=== PATIENT | female | born 1970 | race Caucasian/White ===

== ENCOUNTER 2016-05-04 11:58 | Emergency (ER) | payer OTHER ==
[~2016-05-04] VITALS: Ht 167.6 cm; Wt 99.8 kg
[~2016-05-04 11:58] MED LIST: DEPAKOTE ER250 MG PO; SEROQUEL100 MG PO; SEROQUEL25 MG PO; WELLBUTRIN SR100 MG PO
[2016-05-04 12:16] VITALS: BP 157/86
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
--- NOTE | 2016-05-04 13:20 | NUR ---
PT IS LYING ON BED COMFORTABLY NO ACUTE DISTRESS NOTED AT THIS TIME.WILL CONTIUE TO MONITOR PT.
--- NOTE | 2016-05-04 14:23 | NUR ---
PT IS SLEEPING. NO ACUTE DISTRESS NOTED.WILL CONTINUE TO MONITOR PT.
--- NOTE | 2016-05-04 14:30 | NUR ---
Patient being evaluated by DR FONTANEZ at bedside.
[2016-05-04] MEDS ORDERED: KETOROLAC 60 MG/2 ML VIAL IM ONE (14:35)
--- NOTE | 2016-05-04 15:33 | NUR ---
Patient discharged with v/s stable. Written and verbal after care instructions given and explained. Patient alert, oriented and verbalized understanding of instructions. Ambulatory with steady gait. All questions addressed prior to discharge. ID band removed. Patient advised to follow up with PMD. Rx of MOTRIN AND NORCO given. Patient educated on indication of medication including possible reaction and side effects.ADVISED PT TO AVOID CSTRTENOUS ACTIVITIES AND PT AGREED TO IT. Opportunity to ask questions provided and answered.
[2016-05-04 15:35] VITALS: BP 139/78
== END 2016-05-04 15:33 | disposition home or self-care (01) ==
LOC: MED 12:16
DX: S76.311A Strain of muscle, fascia and tendon of the posterior muscle group at thigh level, right thigh, initial encounter (principal); I10 Essential (primary) hypertension; J45.909 Unspecified asthma, uncomplicated; X58.XXXA Exposure to other specified factors, initial encounter; Y93.89 Activity, other specified; Y92.89 Other specified places as the place of occurrence of the external cause; Y99.8 Other external cause status
CPT/HCPCS: 96372; 99283; J1885

== ENCOUNTER 2017-04-15 16:07 | Emergency (ER) | payer OTHER ==
[~2017-04-15] VITALS: Ht 165.1 cm; Wt 95.7 kg
[~2017-04-15 16:07] MED LIST changes: -DEPAKOTE ER250 MG PO; +DIVA250T PO; -SEROQUEL100 MG PO; -SEROQUEL25 MG PO; -WELLBUTRIN SR100 MG PO
[2017-04-15 16:10] VITALS: BP 155/102
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
[2017-04-15] MEDS ORDERED: KETOROLAC 60 MG/2 ML VIAL IM ONE (16:30)
[2017-04-15 17:13] VITALS: BP 147/93
--- NOTE | 2017-04-15 17:14 | NUR ---
Patient discharged with v/s stable. Written and verbal after care instructions given and explained. Patient alert, oriented and verbalized understanding of instructions. Ambulatory with steady gait. All questions addressed prior to discharge. ID band removed. Patient advised to follow up with PMD. Rx of Motrin 800mg, and [place] 5mg-325mg given. Patient educated on indication of medication including possible reaction and side effects. Opportunity to ask questions provided and answered.
== END 2017-04-15 17:14 | disposition home or self-care (01) ==
LOC: MED 16:07
DX: M25.511 Pain in right shoulder (principal); M25.572 Pain in left ankle and joints of left foot; M25.562 Pain in left knee; J45.909 Unspecified asthma, uncomplicated; I10 Essential (primary) hypertension; Z79.899 Other long term (current) drug therapy
CPT/HCPCS: 96372; 99283; J1885

== ENCOUNTER 2019-05-07 09:19 | Emergency (ER) | payer OTHER ==
[~2019-05-07] VITALS: Ht 165.1 cm; Wt 101.6 kg
[2019-05-07 09:28] VITALS: BP 117/77
--- NOTE | 2019-05-07 09:37 | NUR ---
RECEIVED A 49/F FROM TRIAGE WITH C/O DIZZINESS AND SINUS CONGESTION FOR THE PAST DAY. PT DENIES ANY PAIN. NO DISTRESS NOTED. IN BED FOR MSE.
--- NOTE | 2019-05-07 09:53 | NUR ---
Patient discharged with v/s stable. Written and verbal after care instructions given and explained. Patient alert, oriented and verbalized understanding of instructions. Ambulatory with steady gait. All questions addressed prior to discharge. ID band removed. Patient advised to follow up with PMD. Rx of CLARITIN AND MECLIZINE given. Patient educated on indication of medication including possible reaction and side effects. Opportunity to ask questions provided and answered.
[2019-05-07 09:54] VITALS: BP 117/77
== END 2019-05-07 09:53 | disposition home or self-care (01) ==
LOC: MED 09:19
DX: R42 Dizziness and giddiness (principal); J32.9 Chronic sinusitis, unspecified; Z79.899 Other long term (current) drug therapy; Z98.890 Other specified postprocedural states
CPT/HCPCS: 99282

== ENCOUNTER 2019-11-27 18:13 | Emergency (ER) | payer OTHER ==
[~2019-11-27] VITALS: Ht 167.6 cm; Wt 104.3 kg
[2019-11-27 18:23] VITALS: BP 159/93
[2019-11-27] MEDS ORDERED: LIDOCAINE MPF 1% 10 MG/ML VIAL INJ ONE (19:45)
--- NOTE | 2019-11-27 19:55 | NUR ---
TRINIDADD BEDSIDE PERFORMING I&D
--- NOTE | 2019-11-27 20:00 | NUR ---
49 YO F BIB SELF FOR C/C OF R CHEST ABCESS X1.5 WEEKS.. PT REPORTS 8/10 PAIN WHEN MOVING R ARM. DENIES OTC MEDS. STATES ABCESS IS ITCHY AND DRAINING. NKA NO MED HX NO RX
--- NOTE | 2019-11-27 20:15 | NUR ---
ISLAND DRESSING PLACED OVER PT WOUND ON R CHEST.
[2019-11-27 20:20] VITALS: BP 159/93
--- NOTE | 2019-11-27 20:20 | NUR ---
Patient discharged with v/s stable. Written and verbal after care instructions given and explained. Patient alert, oriented and verbalized understanding of instructions. Ambulatory with steady gait. All questions addressed prior to discharge. ID band removed. Patient advised to follow up with PMD. Rx of BACTRIM, TRMADOL given. Patient educated on indication of medication including possible reaction and side effects. Opportunity to ask questions provided and answered.
== END 2019-11-27 20:20 | disposition home or self-care (01) ==
LOC: MED 18:13
DX: L02.213 Cutaneous abscess of chest wall (principal); Z79.899 Other long term (current) drug therapy
CPT/HCPCS: 10060; 99283; J2001

== ENCOUNTER 2019-12-01 13:36 | Emergency (ER) | payer OTHER ==
[~2019-12-01] VITALS: Ht 167.6 cm; Wt 104.3 kg
--- NOTE | 2019-12-01 13:49 | NUR ---
PATIENT AMBULATED TO ER BED 4.
[2019-12-01 13:51] VITALS: BP 137/86
--- NOTE | 2019-12-01 13:51 | NUR ---
pt was seen 3 days ago for I and D of rt chest abscess . antibiotics and pain meds taken .pt aox4 , afibrile , ambulatory with steady gait, clean , open i and d rt thoracic area , no tenderness nor discharge noted . denies pain and fever. pmhx denies.
--- NOTE | 2019-12-01 14:31 | NUR ---
dr christianson at bedside evaluating pt.
[2019-12-01 14:38] VITALS: BP 137/86
--- NOTE | 2019-12-01 14:38 | NUR ---
Patient discharged with v/s stable. Written and verbal after care instructions given and explained. Patient verbalized understanding. Ambulatory with steady gait. All questions addressed prior to discharge. Advised to follow up with PMD.
== END 2019-12-01 14:38 | disposition home or self-care (01) ==
LOC: MED 13:36
DX: L02.213 Cutaneous abscess of chest wall (principal); Z48.00 Encounter for change or removal of nonsurgical wound dressing
CPT/HCPCS: 99281

== ENCOUNTER 2020-11-11 05:43 | Emergency (ER) | payer OTHER ==
[~2020-11-11] VITALS: Ht 165.1 cm; Wt 113.4 kg
[2020-11-11 05:45] VITALS: BP 117/83
--- NOTE | 2020-11-11 05:45 | NUR ---
TO BED AMBULATORY
--- NOTE | 2020-11-11 07:40 | NUR ---
Patient discharged with v/s stable. Written and verbal after care instructions ABOUT SKIERS THUMB given and explained. Patient verbalized understanding. Ambulatory with steady gait. All questions addressed prior to discharge. Advised to follow up with PMD.
--- NOTE | 2020-11-11 07:43 | NUR ---
NO NURSING INTERVENTIONS PROVIDED.
== END 2020-11-11 07:40 | disposition home or self-care (01) ==
LOC: MED 05:43
DX: M79.644 Pain in right finger(s) (principal); Z79.899 Other long term (current) drug therapy
CPT/HCPCS: 73130; 99283

== ENCOUNTER 2022-06-25 13:47 | Emergency (ER) | payer OTHER ==
[~2022-06-25] VITALS: Ht 167.6 cm; Wt 106.1 kg
[2022-06-25 14:09] VITALS: BP 140/86
[2022-06-25] MEDS ORDERED: BACITRACIN OINT 500 UNITS/GM PKT TP ONE (15:05)
--- NOTE | 2022-06-25 15:18 | NUR ---
L POSTERIOR HAND WOUND IRRIGATED AND DRESSED WITH NON ADHERENT X 1 + CMS
[2022-06-25] MEDS ORDERED: AMOX-999 PO (15:25)
[2022-06-25] MEDS ORDERED: BACI-416 TP (15:25)
[2022-06-25] MEDS ORDERED: IBUP-2213 PO (15:25)
[2022-06-25 16:42] VITALS: BP 138/87
--- NOTE | 2022-06-25 16:42 | NUR ---
Patient discharged with v/s stable. Written and verbal after care instructions given and explained. Patient alert, oriented and verbalized understanding of instructions. Ambulatory with steady gait. All questions addressed prior to discharge. ID band removed. Patient advised to follow up with PMD. Rx of AMOXICILLIN, BACITRACIN, IBUPROFEN (SENT) given. Patient educated on indication of medication including possible reaction and side effects. Opportunity to ask questions provided and answered.
== END 2022-06-25 16:42 | disposition home or self-care (01) ==
LOC: MED 13:47
DX: S60.512A Abrasion of left hand, initial encounter (principal); W54.0XXA Bitten by dog, initial encounter; Y93.89 Activity, other specified; Y92.89 Other specified places as the place of occurrence of the external cause; Y99.8 Other external cause status
CPT/HCPCS: 90471; 90715; 99283

== ENCOUNTER 2023-12-10 14:04 | Emergency (ER) | payer OTHER ==
[~2023-12-10] VITALS: Ht 160 cm; Wt 108.0 kg
[~2023-12-10 14:04] MED LIST changes: +AMOX-999 PO; +BACI-418 TP; +IBUP-2213 PO
[2023-12-10 14:06] VITALS: BP 113/90; PULSE 98; RESP 15; TEMP 98.8; O2SAT 96
[2023-12-10 14:30] VITALS: O2SAT 96
[2023-12-10] MEDS: MECLIZINE 25 MG TAB PO ONE (14:51)
[2023-12-10] MEDS: KETOROLAC 60 MG/2 ML VIAL IM ONE (14:52)
[2023-12-10] MEDS ORDERED: MECL-303 PO (14:56)
[2023-12-10] MEDS ORDERED: IBUP-2213 PO (14:56)
== END 2023-12-10 15:12 | disposition home or self-care (01) ==
LOC: MED 14:04
DX: R42 Dizziness and giddiness (principal); Z79.899 Other long term (current) drug therapy
CPT/HCPCS: 96372; 99283; J1885; J8597